=== PATIENT | male | born 1965 | race Caucasian/White ===

== ENCOUNTER → 2018-05-22 | Outpatient (CLI) | payer OTHER ==
--- NOTE | 2018-05-22 13:05 | CARDNUC ---
[place] [address] CARDIAC NUCLEAR IMAGING REPORT Name: PREMA NICOLE Room: [facility]#: [id number] Admission: 05/22/18 Attend Phys: Stevan Campuzano, Discharge: Date of : 61 Date of Service: 05/22/18 1305 Report #: [id number] THIS REPORT FOR: //name// APPROVED REPORT Imaging Protocol: Rest Tc-99m/Stress Tc-99m 1 day Study performed: 05/22/2018 07:30:00 Indication: R/O Acute Coronary Syndrome Patient Location: Out-Patient Stress Tech: Mila Rubio Stress Nurse: Susan Joseph RN NM Tech:ADIA Keenan Ht: 6 ft 1 in Wt: 235 lbs BSA: 2.30 m2 HR: 67 bpm BP: 125/93 mmHg BMI: 31.00 Rhythm: NSR Medical History Medical History: HTN, Hyperlipidemia Medications: Losartan, Amlodipine Allergies: No known drug allergies Cardiac Risk Factors: Hyperlipidemia, HTN Previous Cardiac Procedures: NONE Pretest Chest Pain Characteristics: No chest pain Exercise History: Physically active Resting Data Rest SPECT myocardial perfusion imaging was performed in supine position 30 minutes following the intravenous injection of 10.8 mCi of Tc-99m Sestamibi. Time of rest injection: 0750 Date: 05/22/2018 Time of rest imagin The images were gated to evaluate regional wall motion and calculate left ventricular ejection fraction. Administration Route: IV Administration Site: Right Hand Pharmacologic Stress Pharmacologic stress test was performed by injecting Regadenoson mg IV push followed by the intravenous injection of mCi of Exercise Stress At peak stress, the patient was injected intravenously with 34.3mCi [place] [address] CARDIAC NUCLEAR IMAGING REPORT Name: PREMA NICOLE Room: [facility]#: [id number] Admission: 05/22/18 Attend Phys: Stevan Campuzano, Discharge: Date of : 61 Date of Service: 05/22/18 1305 Report #: [id number] of Tc-99m Sestamibi. Time of stress injection: 0935 Time of stress imagin Administration Route: IV Administration Site: Right Hand Heart Rate at time of stress injection: 141 bpm. Patient continued to exercise for 2 minute(s). Gated Stress SPECT was performed 30 minutes after stress injection. The images were gated to evaluate regional wall motion and calculate left ventricular ejection fraction. Prone imaging was performed. Stress Test Details Stress Test: Exercise stress testing was performed using a Anshul protocol. HR Max Heart Rate (APMHR): 166 bpm Resting HR: 67 bpm Target HR (85% APMHR): 141 bpm Max HR Achieved: 156 bpm % of APMHR: 93 Recovery HR: 97 bpm HR response to stress: Normal HR response to stress BP Resting BP: 125/93 mmHg Recovery BP: 137/79 mmHg BP response to stress: Normal blood pressure response to stress. ECG Resting ECG: Sinus Rhythm Stress ECG: Sinus Rhythm ST Change: Upsloping ST depression Maximum ST Deviation: 1 mm Recovery ECG: Sinus Rhythm Recovery ST Change: None Clinical Reason for Termination: Completed protocol Stress Symptoms: Dyspnea Exercise duration: 11 min sec Exercise capacity: 13.12 METs Angina Score: [place] [address] CARDIAC NUCLEAR IMAGING REPORT Name: PREMA NICOLE Room: [facility]#: [id number] Admission: 05/22/18 Attend Phys: Stevan Campuzano, Discharge: Date of : 61 Date of Service: 05/22/18 1305 Report #: [id number] DURING THE TEST PATIENT COMPLAINED OF SLIGHT SHORTNESS OF AIR Stress ECG Conclusion mildly positive ecg Quiñones Treadmill Score is 6.0 which is Low risk. Study Quality Study: Good Artifact: Mild Increased GI uptake Lung Uptake: Normal Study Data At rest, the left ventricular ejection fraction was 62%.. Post stress, the left ventricular ejection was 66%.. SSS: 2 SRS: 2 SDS: 0 TID = 0.90. Perfusion Review of rest data reveals normal perfusion, without perfusion defects.Imaging obtained following exercise stress demonstrate a similar, uniform uptake of tracer without defects. Prone imaging was normal. LVEDV is normal.No segental wall motion abnormality seen. Images were reviewed using [employer]. Wall Motion normal all segments Nuclear Conclusion ECG Findings: positive for ischemia Clinical Findings: negative for ischemia Nuclear Findings: negative for ischemia Exercise Capacity: normal Left Ventricular Function: normal Risk Study: low Negative perfusion nuclear stress test for ischemia/infarct. ECG abnormality is likely false positive <Conclusion> mildly positive ecg <ELECTRONICALLY SIGNED> By: Stevan Campuzano MD, FACC 05/22/18 1305 1305 1305 Stevan Campuzano MD, FACC /INF
== END ==
LOC: M.NUC 04-21 14:49
DX: I25.10 Atherosclerotic heart disease of native coronary artery without angina pectoris (principal); I10 Essential (primary) hypertension; E78.5 Hyperlipidemia, unspecified